=== PATIENT | male | born 1955 | race Caucasian/White ===

== ENCOUNTER → 2016-04-07 | Outpatient (CLI) | payer MEDICARE ==
--- NOTE | 2016-04-07 16:42 | PN ---
DATE OF SERVICE: 04/07/2016 A 60-year-old gentleman who had [facility] for treatment of obstructive sleep apnea-hypopnea syndrome in severe range. We discussed results of diagnostic sleep study and CPAP titration in detail. I checked CPAP unit. CPAP pressure 8 cm of water. Usage is 26 out of 30 nights for more than 4 hours. Apnea-hypopnea index reading from the machine is 4.2. There is some leak from the mask, but again breathing is under control. According to patient he feels better with the machine during the day and sleeps better. [place] Sleepiness Scale is 6. MEDICATIONS: Enalapril, Bactrim, Klonopin, citalopram. During physical exam, the patient in no distress. VITAL SIGNS: BP 140/83, HR 74, RR 16. Weight 176, temp is 97.9. Oxygen saturation at room air 96%. HEENT: PERRLA, EOMI. LUNGS: Clear. HEART: S1, S2 regular. ABDOMEN: Soft, nontender. EXTREMITIES: No edema. IMPRESSION: 1. Obstructive sleep apnea-hypopnea syndrome in severe range, apnea-hypopnea index 56.1 with oxygen desaturation to 81%, on control with CPAP at 8 cm of water. Patient demonstrated very good compliance, benefiting from treatment. 2. Hypertension. 3. Periodic limb movement syndrome. 4. Hyperlipidemia. 5. Back problems. 6. History of skin carcinoma on the face. 7. Restriction of nasal breathing. Patient is using a full-face mask. PLAN: 1. Continue treatment every night for the whole night. 2. Watching weight. 3. Sleep hygiene with regular time in bed for at least 8 hours. 4. No driving if feeling any sleepiness. 5. We may consider to use different type of the full-face mask. Thank you very much for allowing me to participate in the management of your patient.
== END | disposition home or self-care (01) ==

== ENCOUNTER → 2017-04-20 | Outpatient (CLI) | payer MEDICARE ==
--- NOTE | 2017-04-20 15:07 | PN ---
PROGRESS NOTE DATE OF SERVICE: 04/20/2017 A 61-year-old gentleman who has been [facility] treatment of severe obstructive sleep apnea-hypopnea syndrome. Last time I saw gentleman 1 year ago. He continued to use his CPAP equipment every night for the whole night and getting supplies with replacement of his mask, tube and filters. No snoring with the machine. No sleepiness. [place] Sleepiness Scale is 3. CPAP pressure in his CPAP unit is 8. MEDICATIONS: , clozapine, citalopram. PHYSICAL EXAM: Patient in no distress. BP 121/79, HR 76, RR 16, height 5, 8, weight 178, BMI 27, temp 98.7, oxygen saturation at room air 96%. OROPHARYNX: Extremely low position of soft palate. Neck Supple, no JVD. Thyroid is not palpable. LUNGS Clear to percussion and to auscultation. Good air exchange. No wheezing or rhonchi. HEART S1, S2 regular. No murmurs, gallops, or rubs. ABDOMEN Soft and nontender. Bowel sounds are present. No organomegaly appreciated. EXTREMITIES No clubbing or cyanosis. [employer] Awake, alert, and oriented X3. Cranial nerves 2 to 7 intact. There is no fasciculation or atrophy. noted. No focal deficits observed. IMPRESSION: 1. Severe obstructive sleep apnea-hypopnea syndrome. Apnea-hypopnea index 56.1. Patient demonstrated good compliance with treatment, benefitting from treatment. 2. Hypertension. 3. Periodic limb movement syndrome. 4. Back problems. 5. Hyperlipidemia. 6. History of CA of the skin of the face. 7. Some restriction of nasal breathing. Patient is using full-face mask. PLAN: 1. Continue treatment with CPAP every night. 2. Prescription for all necessary CPAP supplies including mask, tube, filters. 3. Watching and losing weight. 4. Sleep hygiene with regular time in bed for at least 8 hours. 5. No driving if feeling any sleepiness. 6. I checked patient's CPAP unit. It showed significant leak from the mask, needs to replace his mask. TIANA / MEHRDAD: [id number] /
== END | disposition home or self-care (01) ==
LOC: SLEEP 13:53
PROVIDERS: ATTEND Internal Medicine
DX: G47.33 Obstructive sleep apnea (adult) (pediatric) (principal); I10 Essential (primary) hypertension; G47.61 Periodic limb movement disorder; E78.5 Hyperlipidemia, unspecified; Z85.828 Personal history of other malignant neoplasm of skin; Z79.899 Other long term (current) drug therapy

== ENCOUNTER 2022-07-27 05:57 | Day surgery (SDC) | payer MEDICARE, OTHER ==
--- NOTE | 2022-07-26 18:24 | P.GSHP ---
History of Present Illness H&P Date: 07/26/22 66 yo male with phimosis. He is unable to retract his forskin leading to difficulty with urination as well as hygiene issues. He comes for a circumcision. - Constitutional Constitutional: Denies chills, Denies fever - EENT Eyes: denies blurred vision, denies pain Ears, nose, mouth and throat: Denies headache, Denies sore throat - Cardiovascular Cardiovascular: Denies chest pain, Denies shortness of breath - Respiratory Respiratory: Denies cough, Denies 7 - Gastrointestinal Gastrointestinal: Denies abdominal pain, Denies diarrhea, Denies nausea, Denies vomiting - Genitourinary (Female) Genitourinary: Denies dysuria, Denies hematuria - Genitourinary (Male) Genitourinary: Denies dysuria, Denies hematuria - Musculoskeletal Musculoskeletal: Denies myalgias - Integumentary Integumentary: Denies pruritus, Denies rash - Neurological Neurological: Denies numbness, Denies weakness - Psychiatric Psychiatric: Denies anxiety, Denies depression - Endocrine Endocrine: Denies fatigue, Denies weight change Past Medical History Past Medical History: Coronary Artery Disease (CAD), Cancer, Heart Failure, Eye Disorder, Hyperlipidemia, Hypertension, Prostate Disorder, Renal Disease, Rheumatoid Arthritis (RA), Skin Disorder Additional Past Medical History / Comment(s): rt detached retina,gout,seborrheic dermatits,dysphagia,ckd stage 2, prostate ca History of Any Multi-Drug Resistant Organisms: None Reported Past Surgical History: Orthopedic Surgery Additional Past Surgical History / Comment(s): back sx Past Anesthesia/Blood Transfusion Reactions: Unable to Obtain Smoking Status: Unknown if ever smoked Medications and Allergies Home Medications Medication Instructions Recorded Confirmed Type Acetaminophen Tab [Tylenol] 325 mg PO Q6H PRN 07/25/22 07/25/22 History Apixaban [Eliquis] 5 mg PO BID 07/25/22 07/25/22 History Atorvastatin Calcium [Lipitor] 80 mg PO HS 07/25/22 07/25/22 History Cariprazine HCl [Vraylar] 1.5 mg PO DAILY 07/25/22 07/25/22 History Escitalopram [Lexapro] 20 mg PO DAILY 07/25/22 07/25/22 History Finasteride [Proscar] 5 mg PO DAILY 07/25/22 07/25/22 History Furosemide [Lasix] 1 tab PO DAILY 07/25/22 07/25/22 History Latanoprost/Pf [Latanoprost 0.005% 1 drop BOTH EYES HS 07/25/22 07/25/22 History Eye Drop] Lidocaine 4% Cream [Lmx 4] 1 applic TOPICAL Q8H PRN 07/25/22 07/25/22 History Lisinopril/Hydrochlorothiazide 1 each PO DAILY 07/25/22 07/25/22 History [Zestoretic 10-12.5] Loratadine [Claritin] 5 mg PO DAILY PRN 07/25/22 07/25/22 History Magnesium Hydroxide [Milk of 30 ml PO Q48H PRN 07/25/22 07/25/22 History Magnesia] Metoprolol Tartrate 25 mg PO BID 07/25/22 07/25/22 History Omeprazole 20 mg PO DAILY 07/25/22 07/25/22 History Tamsulosin HCl [Flomax] 0.4 mg PO DAILY 07/25/22 07/25/22 History allopurinoL [Allopurinol] 300 mg PO HS 07/25/22 07/25/22 History timoloL maleate [timoloL maleate 1 applic BOTH EYES BID 07/25/22 07/25/22 History 0.5% Gel] Allergies Allergy/AdvReac Type Severity Reaction Status Date / Time brimonidine Allergy Unknown Verified 07/25/22 10:44 Surgical - Exam - General obese - Eyes normal ocular movement, no icteric - ENT no hearing loss, no congestion - Neck no masses, trachea midline - Respiratory normal respiratory effort, clear to auscultation - Abdomen Abdomen: soft, non tender, no guarding, no rigid, no rebound - Genitourinary tight phimosis. - Integumentary no rash, no abnormal pigmentation - Neurologic no disoriented, no combative - Psychiatric oriented to time, oriented to person, oriented to place, speech is normal, memory intact Assessment and Plan Assessment: Impression: phimosis, htn, obesiy, hyperlipidemia,cad, RA, history of detached retina. Plan: circumcision
[~2022-07-27 05:57] MED LIST: GENTAMICIN 140 MG in SODIUM CHLORIDE 0.9% 100 ML IVPB PRN
[2022-07-27] MEDS ORDERED: LACTATED RINGERS 1,000 ML IV SCH (06:16)
[2022-07-27] MEDS ORDERED: DEXAMETHASONE SOD PHOSPHATE 4 MG/ML 1 ML VIAL IV ONE (06:16)
[2022-07-27] MEDS ORDERED: LIDOCAINE 1% (10MG/ML) FOR IV START INTRADERMA PRN (06:16)
[2022-07-27 06:58] VITALS: TEMP 97
[2022-07-27] MEDS ORDERED: ONDANSETRON 4 MG/2 ML VIAL IVP PRN (07:00)
[2022-07-27] MEDS ORDERED: HYDROmorphone 0.5 MG/0.5 ML SYRINGE IVP PRN (07:00)
[2022-07-27] MEDS ORDERED: LIDOCAINE 2% INJ 20 MG/ML (2 ML VIAL) ONE (07:22)
[2022-07-27] MEDS ORDERED: SUCCINYLCHOLINE CHLORIDE 200 MG/10 ML VIAL IV ONE (07:22)
[2022-07-27] MEDS ORDERED: PROPOFOL 10 MG/ML 20 ML VIAL IV ONE (07:22)
[2022-07-27] MEDS ORDERED: fentaNYL (PF) 50 MCG/ML 2 ML AMP ONE (07:22)
[2022-07-27] MEDS ORDERED: ePHEDrine 50 MG/ML 1 ML VIAL ONE (07:22)
[2022-07-27] MEDS ORDERED: MIDAZOLAM 2 MG/2 ML VIAL ONE (07:22)
[2022-07-27] MEDS: AMPICILLIN 1,000 MG in SODIUM CHLORIDE 0.9% 50 ML IVPB PRN ×2 (07:26→07:27)
[2022-07-27] MEDS ORDERED: BUPIVACAINE (PF) 0.5% 30 ML VIAL SQ ONE ×2 (07:44→07:59)
--- NOTE | 2022-07-27 08:15 | P.OP ---
Date of Procedure: 07/27/22 Preoperative Diagnosis: (Phimosis Procedure(s) Performed: Same Implants: Circumcision Anesthesia: GETA, local Estimated Blood Loss (ml): 0 Pathology: other (Foreskin) Condition: stable Disposition: PACU Indications for Procedure: Patient is 66. He is group home dependent. He has marked phimosis. He comes for circumcision Description of Procedure: Patient brought to the operating suite. He is given a general anesthetic. He is prepped and draped sterilely. I excised redundant foreskin. Bleeding was controlled electrocautery. I reapproximate the shaft skin to the subcoronal skin with 2 running 3-0 chromic suture. I then of the procedure 10 mL block of Percent Marcaine plain is administered. The wound is dressed the patient's awake and returned recovery room good condition. He'll be discharged back to the extended care facility upon recovery. Blood loss is minimal
[2022-07-27 09:50] VITALS: RESP 16
[2022-07-27 10:30] VITALS: BP 109/74; PULSE 68
== END 2022-07-27 10:50 ==
LOC: OR 05:57
PROVIDERS: ATTEND Urology
DX: N47.1 Phimosis (principal); I50.9 Heart failure, unspecified; N18.2 Chronic kidney disease, stage 2 (mild); E78.5 Hyperlipidemia, unspecified; I48.91 Unspecified atrial fibrillation; F32.A Depression, unspecified; M10.9 Gout, unspecified; E66.9 Obesity, unspecified; Z68.38 Body mass index [BMI] 38.0-38.9, adult; Z85.46 Personal history of malignant neoplasm of prostate; Z79.01 Long term (current) use of anticoagulants; Z79.899 Other long term (current) drug therapy; Z88.8 Allergy status to other drugs, medicaments and biological substances
CPT/HCPCS: 54161; J2250; J0330; J3010; J1580; J0290; J2704; J2001; 88304

== ENCOUNTER → 2023-10-06 | Outpatient (CLI) | payer MEDICARE, OTHER ==
--- NOTE | 2023-10-06 15:03 | MR ---
EXAMINATION TYPE: MR brain and iac wo/w con DATE OF EXAM: 10/06/2023 8:40 AM CLINICAL INDICATION:Male, 68 years old with history of H93.3X9 DISORDERS OF UNSPECIFIED ACOUSTIC NERV E; PHH, Bilateral hearing loss. COMPARISON: None TECHNIQUE: Multi planar, multi sequence imaging was performed through the brain. Specialized thin s equences were obtained through the internal auditory canals. Pre-and post gadolinium sequences were obtained. MR contrast: IV Contrast: 12 cc Gadavist FINDINGS: Mild cerebral atrophy. The hale-white junctions, ventricular system, and cisterns appear unremarkable . Scattered foci of high T2 signal intensity are seen within the periventricular white matter. Midli ne structures show no abnormality. Diffusion-weighted imaging shows no evidence of restricted diffusi on. The susceptibility weighted images do not reveal any evidence for micro-hemorrhage. The bone marrow signal is within normal limits. Paranasal sinuses and mastoid air cells: Mild scattered paranasal sinus disease. Visualized orbits: Posterior changes right globe. Left aphakia. After administration of gadolinium, no abnormal enhancement is seen. The internal auditory canal sequences demonstrate no significant irregularity. The 7th cranial nerve s, 8 cranial nerves, and cerebellar pontine angles appear unremarkable. After the administration andrea olinium, no abnormal enhancement is seen within the internal auditory canals. Vascular loop: None. IMPRESSION: 1. No evidence of intracranial mass nor acute/subacute CVA. 2. No evidence of internal auditory canal abnormality. 3. Nonspecific white matter changes, likely secondary to small vessel ischemic disease.
== END | disposition home or self-care (01) ==
LOC: RADMRIMAIN 07:10
PROVIDERS: ATTEND Otolaryngology
DX: H93.3X9 Disorders of unspecified acoustic nerve (principal); H91.93 Unspecified hearing loss, bilateral; H93.13 Tinnitus, bilateral; H90.A22 Sensorineural hearing loss, unilateral, left ear, with restricted hearing on the contralateral side
CPT/HCPCS: 70553; A9585